=== PATIENT | male | born 1975 | race Caucasian/White ===

== ENCOUNTER 2017-09-09 00:13 | Emergency (ER) | payer BC ==
[2017-09-09] MEDS ORDERED: Lidocaine 2% PF * 5 ML VIAL ONE (02:19)
[2017-09-09 03:31] VITALS: BP 130/68
--- NOTE | 2017-09-09 03:45 | ED ---
Jairo Choudhury Tiffany, scribed for Mac Marshall MD on 09/09/17 at 0225 . GI/ HPI - HPI Summary HPI Summary: 41 year old M presenting to [facility] complains of right testicle pain since three hours ago. The patient rates the pain 1/10 in severity. Symptoms aggravated by nothing. Symptoms alleviated by nothing. Patient reports laceration on right testicle, bleeding that has since resolved. Was sitting in a plastic chair that had a crack that caught his shorts and right testicle. - History of Current Complaint Chief Complaint: EDUrogenitalProblems Time Seen by Provider: 09/09/17 01:49 Stated Complaint: GENERAL ILLNESS Hx Obtained From: Patient Onset/Duration: Started Hours Ago - 3, Still Present Timing: Constant Severity: Mild Current Severity: Mild Pain Intensity: 1 Associated Signs and Symptoms: Positive: Other: - aceration on right testicle, bleeding that has since resolved - Allergy/Home Medications Allergies/Adverse Reactions: Allergies Allergy/AdvReac Type Severity Reaction Status Date / Time No Known Allergies Allergy Verified 09/09/17 00:32 PMH/Surg Hx/FS Hx/Imm Hx Previously Healthy: No Respiratory History: Denies: Hx Chronic Obstructive Pulmonary Disease (COPD) Opthamlomology History: Reports: Hx Contacts or Glasses - Surgical History Surgery Procedure, Year, and Place: n/a Infectious Disease History: No Infectious Disease History: Denies: Traveled Outside the [place] in Last 30 Days - Family History Known Family History: Positive: Other - reviewed and non-contributory - Social History Alcohol Use: Occasionally Hx Substance Use: No Substance Use Type: Reports: None Smoking Status (MU): Unknown if Ever Smoked Review of Systems Positive: other - right testicle pain Positive: Other - laceration on right testicle, bleeding that has since resolved All Other Systems Reviewed And Are Negative: Yes Physical Exam - Summary Physical Exam Summary: VITAL SIGNS: Reviewed. GENERAL: Patient is a well-developed and nourished male who is lying comfortable in the stretcher. Patient is not in any acute respiratory distress. HEAD AND FACE: No signs of trauma. No ecchymosis, hematomas or skull depressions. No sinus tenderness. EYES: PERRLA, EOMI x 2, No injected conjunctiva, no nystagmus. EARS: Hearing grossly intact. Ear canals and tympanic membranes are within normal limits. MOUTH: Oropharynx within normal limits. NECK: Supple, trachea is midline, no adenopathy, no JVD, no carotid bruit, no c- spine tenderness, neck with full ROM. CHEST: Symmetric, no tenderness at palpation LUNGS: Clear to auscultation bilaterally. No wheezing or crackles. CVS: Regular rate and rhythm, S1 and S2 present, no murmurs or gallops appreciated. ABDOMEN: Soft, non-tender. No signs of distention. No rebound no guarding, and no masses palpated. Bowel sounds are normal. EXTREMITIES: FROM in all major joints, no edema, no cyanosis or clubbing. NEURO: Alert and oriented x 3. No acute neurological deficits. Speech is normal and follows commands. SKIN:1cm by 1cm L-shaped laceration over right scrotum area Triage Information Reviewed: Yes Vital Signs On Initial Exam: Initial Vitals Temp Pulse Resp BP Pulse Ox 98.0 F 90 16 140/75 97 09/09/17 00:25 09/09/17 00:25 09/09/17 00:25 09/09/17 00:25 09/09/17 00:25 Vital Signs Reviewed: Yes Procedures - Procedure Summary Procedure Summary: Laceration repair: Used lidocaine 2% with no epi, proline 5.0. Three sutures put in. Alignment, hemostasis Diagnostics - Vital Signs Vital Signs Temp Pulse Resp BP Pulse Ox 09/09/17 00:25 98.0 F 90 16 140/75 97 - Laboratory Lab Statement: Any lab studies that have been ordered have been reviewed, and results considered in the medical decision making process. GIGU Course/Dx - Course Course Of Treatment: 41 year old M presenting to [facility] complains of right testicle pain since three hours ago. Laceration was repaired with 3 sutures. Patient instructed to have stitches removed in 7-10 days. He is agreeable to discharge. - Diagnoses Provider Diagnoses: Laceration of scrotum Discharge - Sign-Out/Discharge Documenting (check all that apply): Discharge/Admit/Transfer - Discharge - Discharge Plan Condition: Stable Disposition: HOME Patient Education Materials: Care For Your Stitches (ED), Laceration (ED), Stitches Removal (ED) Referrals: No Primary Care Phys,NOPCP [Primary Care Provider] - Additional Instructions: Have your stitches taken out in 7-10 days. This can be done in the Emergency Department. RETURN TO THE EMERGENCY DEPARTMENT FOR CHANGING OR WORSENING SYMPTOMS. The documentation as recorded by the Jairo arboleda Tiffany accurately reflects the service I personally performed and the decisions made by , Mac Marshall MD.
== END 2017-09-09 03:10 | disposition home or self-care (01) ==
LOC: ED 00:13
DX: S31.31XA Laceration without foreign body of scrotum and testes, initial encounter (principal); W23.0XXA Caught, crushed, jammed, or pinched between moving objects, initial encounter; Y92.9 Unspecified place or not applicable
CPT/HCPCS: 12001; 99282